=== PATIENT | male | born 1960 | race Caucasian/White ===

== ENCOUNTER → 2023-08-15 16:42 | Outpatient (REF) | payer OTHER, SELFPAY | LOC: HWRAD 16:42 | PROVIDERS: ATTENDING PHYSICIAN Family Medicine | DX: R05.1 Acute cough (principal) | CPT/HCPCS: 71046 ==

== ENCOUNTER → 2023-08-28 07:06 | Outpatient (REF) | payer OTHER, SELFPAY | LOC: HWRAD 07:06 | PROVIDERS: ATTENDING PHYSICIAN Family Medicine | DX: J01.90 Acute sinusitis, unspecified (principal); J18.9 Pneumonia, unspecified organism | CPT/HCPCS: 71046 ==

== ENCOUNTER → 2024-08-25 14:57 | Outpatient (REF) | payer OTHER, SELFPAY | LOC: HWRAD 14:57 | PROVIDERS: ATTENDING PHYSICIAN Student in an Organized Health Care Education/Training Program; FAMILY PHYSICIAN Family Medicine | DX: E79.0 Hyperuricemia without signs of inflammatory arthritis and tophaceous disease (principal); D84.9 Immunodeficiency, unspecified; H04.123 Dry eye syndrome of bilateral lacrimal glands; L40.50 Arthropathic psoriasis, unspecified; L40.9 Psoriasis, unspecified; N18.31 Chronic kidney disease, stage 3a; Z11.1 Encounter for screening for respiratory tuberculosis; Z11.59 Encounter for screening for other viral diseases; Z51.81 Encounter for therapeutic drug level monitoring | CPT/HCPCS: 72202; 73120; 73630 ==